=== PATIENT | female | born 1935 | race Caucasian/White ===

== ENCOUNTER 2022-01-02 17:39 | Observation (INO) ==
[2022-01-02] MEDS ORDERED: FUROSEMIDE 40 MG/4 ML VIAL IV STA (20:23)
[2022-01-02 20:38] LABS: Basophils % 0.5 % (0.0-0.8); Eosinophils # 0.2 10*3/uL (0.0-0.87); Eosinophils % 2.4 % (0.00-10.9); Hematocrit 32.9 VOL% (35.7-47.0); Hemoglobin 10.8 GM/DL (12.0-16.0); Immature Granulocytes % 0.2 %; Immature Granulocytes Absolute 0.02 #; Lymphocytes # 3.1 10*3/uL (1.4-4.0); Mean Corpuscular HGB Conc 32.8 GM/DL (32-36); Mean Corpuscular Volume 102.8 FL (87-102); Mean Platelet Volume 10.6 FL (9.6-12.0); Monocytes % 12.6 % (1.7-12.7); Neutrophils % 46.3 % (38.7-73.9); Platelet Count 176 T/CUMM (130-400)
[2022-01-02 20:50] LABS: Albumin 3.5 G/DL (3.4-5.0); Bilirubin,Total 0.4 MG/DL (0.20-1.00); Osmolality,Calculated 283.3 MOS/KG (273-304); Potassium 2.8 MMOL/L (3.5-5.1); Total Protein 8.5 G/DL (6.4-8.2)
[2022-01-02] MEDS ORDERED: POTASSIUM CHLORIDE 20 MEQ TABLET PO STA (21:05)
[2022-01-02] MEDS ORDERED: NITROGLYCERIN SL 0.4 MG TABLET SL STA (21:27)
[2022-01-02] MEDS ORDERED: NITROGLYCERIN SL 0.4 MG TABLET SL ONE (21:27)
[2022-01-02] MEDS ORDERED: ONDANSETRON 4 MG/2 ML VIAL IV PRN (21:40)
[2022-01-02] MEDS ORDERED: CITALOPRAM 20 MG TABLET PO SCH (22:00)
[2022-01-02] MEDS ORDERED: MORPHINE 2 MG/1 ML SYRINGE IV STA (22:04)
[2022-01-02] MEDS ORDERED: ONDANSETRON 4 MG/2 ML VIAL IV ONE (22:04)
[2022-01-02] MEDS: RANOLAZINE 500 MG TABLET PO SCH (23:18)
[2022-01-02] MEDS: ISOSORBIDE MONONITRATE 60 MG TABLET PO SCH (23:18)
[2022-01-03] MEDS ORDERED: DEXT 5% NACL 0.45% KCL 40 MEQ 40 MEQ/1,000 ML BAG IV SCH (00:30)
[2022-01-03] MEDS ORDERED: MELATONIN 3 MG TABLET PO PRN (01:01)
[2022-01-03] MEDS: ACETAMINOPHEN 325 MG TABLET PO PRN ×2 (01:11→09:37)
[2022-01-03 05:34] LABS: Basophils % 0.4 % (0.0-0.8); Eosinophils # 0.2 10*3/uL (0.0-0.87); Eosinophils % 2.5 % (0.00-10.9); Hematocrit 31.8 VOL% (35.7-47.0); Hemoglobin 10.2 GM/DL (12.0-16.0); Immature Granulocytes % 0.3 %; Immature Granulocytes Absolute 0.02 #; Lymphocytes # 2.6 10*3/uL (1.4-4.0); Lymphocytes % 35.6 % (21.3-54.2); Mean Corpuscular HGB Conc 32.1 GM/DL (32-36); Mean Corpuscular Volume 103.6 FL (87-102); Mean Platelet Volume 10.7 FL (9.6-12.0); Monocytes # 1.1 10*3/uL (0.11-0.8); Monocytes % 14.4 % (1.7-12.7); Neutrophils % 46.8 % (38.7-73.9); Platelet Count 166 T/CUMM (130-400); Red Blood Count 3.07 MC/CUMM (3.8-5.5); White Blood Count 7.3 T/CUMM (4-12)
[2022-01-03] MEDS ORDERED: LEVOTHYROXINE 112 MCG TABLET PO SCH (06:30)
[2022-01-03 07:49] LABS: Bilirubin,Total 0.4 MG/DL (0.20-1.00); Calcium 10.4 MG/DL (8.5-10.1); Osmolality,Calculated 280.5 MOS/KG (273-304); Potassium 2.8 MMOL/L (3.5-5.1); Total Protein 8.1 G/DL (6.4-8.2)
[2022-01-03 08:51] VITALS: BP 128/67
[2022-01-03] MEDS ORDERED: FUROSEMIDE 80 MG TABLET PO SCH (09:00)
[2022-01-03] MEDS ORDERED: POTASSIUM CHLORIDE 20 MEQ TABLET PO SCH (09:00)
[2022-01-03] MEDS ORDERED: METOPROLOL TARTRATE 50 MG TABLET PO SCH (09:00)
[2022-01-03] MEDS ORDERED: ASPIRIN CHEW 81 MG TABLET PO SCH (09:00)
[2022-01-03] MEDS ORDERED: PANTOPRAZOLE 40 MG TABLET PO SCH (09:00)
[2022-01-03] MEDS ORDERED: amLODIPine 2.5 MG TABLET PO SCH (09:00)
[2022-01-03] MEDS ORDERED: GABAPENTIN 100 MG CAPSULE PO SCH (09:00)
[2022-01-03] MEDS ORDERED: NITROGLYCERIN 0.1 MG/HR PATCH TRANSDERM SCH (09:00)
[2022-01-03] MEDS: RANOLAZINE 500 MG TABLET PO SCH (09:37)
[2022-01-03] MEDS: ISOSORBIDE MONONITRATE 60 MG TABLET PO SCH (09:39)
== END 2022-01-03 10:06 | disposition home or self-care (01) ==
LOC: N.ED 17:39 → N.TELES 17:39
PROVIDERS: ADMIT Internal Medicine Interventional Cardiology; ATTEND Internal Medicine Interventional Cardiology